=== PATIENT | male | born 1965 | race Caucasian/White ===

== ENCOUNTER 2020-01-16 14:29 | Emergency (ER) | payer BC ==
[~2020-01-16] VITALS: Ht 170.2 cm; Wt 86.4 kg
[2020-01-16 14:35] VITALS: TEMP 98.3
[2020-01-16 15:10] LABS: BASO % 0.5 % (0.0-2.0); EOS # 0.2 (0.0-0.7); EOS % 2.8 % (0-4.0); GRAN # 2.7 (1.4-6.5); GRAN % 44.5 % (42.2-75.2); HEMATOCRIT 41.3 % (42.0-52.0); LYMPH # 2.6 (1.2-3.4); LYMPH % 42.5 % (20.0-51.0); MEAN CELL VOLUME 86 fl (80.0-100.0); MEAN CORPUSCULAR HEMOGLOBIN 29 pg (27.0-31.0); MEAN CORPUSCULAR HGB CONC 34 g/dl (33.0-37.0); MEAN PLATELET VOLUME 9.9 fl (7.4-10.4); MONO # 0.6 (0.1-0.6); MONO % 9.4 % (1.7-9.3); PLATELET COUNT 427 K/mm3 (130-400); RED BLOOD COUNT 4.78 M/mm3 (4.20-5.60); REDCELL DISTRIBUTION WIDTH-CV 12.9 % (11.5-14.5)
[2020-01-16 15:44] LABS: ALANINE AMINOTRANSFERASE 31 U/L (4-49); ALBUMIN 4.1 gm/dL (3.5-5.0); ALKALINE PHOSPHATASE 79 U/L (50-136); ANION GAP 6 mmol/L (7-16); AST,SGOT 37 U/L (15-37); BILIRUBIN,TOTAL 0.9 mg/dL (0.0-1.0); BLOOD UREA NITROGEN 15 mg/dL (9-20); CALCIUM 8.7 mg/dL (8.4-10.2); CARBON DIOXIDE 30 mmol/L (22-30); CHLORIDE 102 mmol/L (98-107); CREATININE, serum 0.97 (0.66-1.25); GLUCOSE 92 mg/dL (74-106); LIPASE 59 U/L (23-300); POTASSIUM 4.1 mmol/L (3.4-5.0); SODIUM 138 mmol/L (137-145); TOTAL PROTEIN 7.3 gm/dL (6.4-8.2)
[2020-01-16 15:53] LABS: C-REACTIVE PROTEIN < 0.5 mg/dL (0.0-0.9)
[2020-01-16 15:54] LABS: TROPONIN-I < 0.012 ng/mL (0.000-0.035)
[2020-01-16 17:59] VITALS: BP 115/71; PULSE 54
== END 2020-01-16 18:00 | disposition home or self-care (01) ==
LOC: COL.ER 14:29
PROVIDERS: Emergency Medicine
DX: R68.84 Jaw pain (principal); R07.9 Chest pain, unspecified; R20.2 Paresthesia of skin